=== PATIENT | male | born 1945 | race Caucasian/White ===

== ENCOUNTER → 2017-10-01 | Day surgery (SDC) | payer MEDICARE ==
[2017-09-16 10:57] LABS: BASOPHILS # (AUTO) 0.1 (0.0-0.1); BASOPHILS % 1.1 % (0.0-1.0); EOSINOPHILS # (AUTO) 0.1 (0.0-0.4); EOSINOPHILS % 1.1 % (0.0-6.0); HEMATOCRIT 41.7 % (38.2-49.6); HEMOGLOBIN 14.1 g/dL (14.0-18.0); LYMPHOCYTES # (AUTO) 2.3 (1.0-3.2); LYMPHOCYTES % 28.3 % (18.0-39.1); MEAN CORPUSCULAR HEMOGLOBIN 30.3 pg (28-32); MEAN CORPUSCULAR HGB CONC 33.8 g/dL (31-35); MEAN CORPUSCULAR VOLUME 89.7 fL (81-99); MONOCYTES # (AUTO) 0.6 (0.2-0.8); MONOCYTES % 7.6 % (4.4-11.3); NEUTROPHILS % 61.7 % (38.7-80.0); PLATELET COUNT 174 x10e3/uL (140-360); RED BLOOD COUNT 4.65 x10e6/uL (4.3-5.7); RED CELL DISTRIBUTION WIDTH 12.4 % (11.7-14.4)
[~2017-10-01] MED LIST: APRISO0.375 GM PO; ASPIRIN81 M3; CO Q-10100 MG PO; LIALDA1.2 GM PO; METOPROLOL SUCC25 MG PO; MIDAZOLAM HCL 2 MG/2 ML VIAL ONE; NIACIN 500 MG1 EACH PO; PANTOPRAZOLE SO40 MG PO; PLAVIX75 MG PO; PROPOFOL IV EMULSION 10 MG/ML 50 ML VIAL ONE; Z RANITIDINE HCL PO; Z.0.LIPITOR20 MG PO; Z.0.METOPROLOL SUCC2 PO; Z.0.PLAVIX75 MG PO; [UNRECOGNIZED DRUG - OTHER]; [UNRECOGNIZED DRUG - OTHER]; [UNRECOGNIZED DRUG - OTHER]
== END | disposition home or self-care (01) ==
LOC: OR 07:10
PROVIDERS: ATTEND Internal Medicine Gastroenterology
DX: D37.1 Neoplasm of uncertain behavior of stomach (principal); K29.70 Gastritis, unspecified, without bleeding; K44.9 Diaphragmatic hernia without obstruction or gangrene; K51.80 Other ulcerative colitis without complications; I25.10 Atherosclerotic heart disease of native coronary artery without angina pectoris; I10 Essential (primary) hypertension; Z01.810 Encounter for preprocedural cardiovascular examination; Z01.812 Encounter for preprocedural laboratory examination; Z79.82 Long term (current) use of aspirin; Z79.01 Long term (current) use of anticoagulants; Z95.5 Presence of coronary angioplasty implant and graft; Z80.0 Family history of malignant neoplasm of digestive organs
CPT/HCPCS: 36415; 43239; 85025; 88305; 88312; 93005; J2250

== ENCOUNTER → 2021-05-11 | Day surgery (SDC) | payer MEDICARE ==
[2021-05-08 12:41] LABS: BASOPHILS # (AUTO) 0.1 (0.0-0.1); BASOPHILS % 1.1 % (0.0-1.0); EOSINOPHILS # (AUTO) 0.2 (0.0-0.4); EOSINOPHILS % 2.9 % (0.0-6.0); HEMATOCRIT 41.5 % (38.2-49.6); HEMOGLOBIN 13.6 g/dL (14.0-18.0); LYMPHOCYTES # (AUTO) 2.2 (1.0-3.2); LYMPHOCYTES % 35.3 % (18.0-39.1); MEAN CORPUSCULAR HEMOGLOBIN 30.3 pg (28-32); MEAN CORPUSCULAR HGB CONC 32.8 g/dL (31-35); MEAN CORPUSCULAR VOLUME 92.4 fL (81-99); MONOCYTES # (AUTO) 0.6 (0.2-0.8); MONOCYTES % 8.9 % (4.4-11.3); NEUTROPHILS # (AUTO) 3.2 (2.1-6.9); NEUTROPHILS % 51.6 % (38.7-80.0); PLATELET COUNT 179 x10e3/uL (140-360); RED BLOOD COUNT 4.49 x10e6/uL (4.3-5.7); RED CELL DISTRIBUTION WIDTH 12.7 % (11.7-14.4)
[2021-05-08 12:52] LABS: INR 0.99; PROTHROMBIN TIME 13.7 seconds (11.9-14.5)
[2021-05-08 12:59] LABS: ALBUMIN 4.1 g/dL (3.5-5.0); ALBUMIN/GLOBULIN RATIO 1.3 (0.8-2.0); ANION GAP 15.7 mmol/L (8-16); CALCIUM 9.3 mg/dL (8.4-10.2); CREATININE, SERUM 1.04 mg/dL (0.72-1.25); POTASSIUM 4.7 mmol/L (3.5-5.1)
[2021-05-11] VITALS (26 sets, daily range): BP systolic 108–158; BP diastolic 68–85
[~2021-05-11] VITALS: Ht 177.8 cm; Wt 90.7 kg
[~2021-05-11] MED LIST changes: +ASACOL HD800 MG PO; +ASPIRIN 325 MG TAB ONE; -ASPIRIN81 M3; +ASPIRIN81 M3 PO; +FAMOTIDINE20 MG PO; +FENTANYL CITRATE/PF 100MCG/2 ML INJ ONE; +HEPARIN SOD (PORCINE) 1000 UNIT/ML 30ML ONE; +HEPARIN SOD/SOD CHLORIDE 2,000 ML ONE; +IOPAMIDOL 370 MG/ML 200 ML INFUS..BTL INJ ONE; +LEXAPRO10 MG PO; +LIDOCAINE HCL 2% LOCAL 20 ML VIAL ONE; +MONTELUKAST SOD10 MG PO; +NITROGLYCERIN/D5W 200 MCG/ML 250 ML ONE; -PROPOFOL IV EMULSION 10 MG/ML 50 ML VIAL ONE; +SODIUM CHLORIDE 0.9% 1000ML 1,000 ML ONE; +TICAGRELOR 90 MG TABLET ONE; +TURMERIC538 MG PO; +VALTREX500 MG PO; +VERAPAMIL HCL 2.5 MG/ML 2 ML VIAL ONE; -[UNRECOGNIZED DRUG - OTHER]; +[UNRECOGNIZED DRUG - OTHER] PO
== END | disposition home or self-care (01) ==
LOC: CATH LAB 05:55
PROVIDERS: ATTEND Internal Medicine Cardiovascular Disease
DX: I25.10 Atherosclerotic heart disease of native coronary artery without angina pectoris (principal); Z95.5 Presence of coronary angioplasty implant and graft; Z01.812 Encounter for preprocedural laboratory examination
CPT/HCPCS: 93458; C9600; 36415; 76937; 80053; 85025; 85610; 92928; 99152; 99153; C1725; C1874; C1887; J1644; J2001; J2250; J3010; J7030; Q9967

== ENCOUNTER → 2024-11-17 | Day surgery (SDC) | payer MEDICARE ==
[2024-11-11 09:46] LABS: BASOPHILS # (AUTO) 0.1 (0.0-0.1); BASOPHILS % 1.5 % (0.0-1.0); EOSINOPHILS # (AUTO) 0.2 (0.0-0.4); EOSINOPHILS % 2.3 % (0.0-6.0); HEMATOCRIT 43.5 % (38.2-49.6); HEMOGLOBIN 13.7 g/dL (14.0-18.0); LYMPHOCYTES # (AUTO) 2.7 (1.0-3.2); LYMPHOCYTES % 34.3 % (18.0-39.1); MEAN CORPUSCULAR HEMOGLOBIN 30.6 pg (28-32); MEAN CORPUSCULAR HGB CONC 31.5 g/dL (31-35); MEAN CORPUSCULAR VOLUME 97.3 fL (81-99); MONOCYTES # (AUTO) 0.8 (0.2-0.8); MONOCYTES % 9.5 % (4.4-11.3); NEUTROPHILS # (AUTO) 4.1 (2.1-6.9); NEUTROPHILS % 52.1 % (38.7-80.0); PLATELET COUNT 177 x10e3/uL (140-360); RED BLOOD COUNT 4.47 x10e6/uL (4.3-5.7); RED CELL DISTRIBUTION WIDTH 12.4 % (11.7-14.4)
[~2024-11-17] MED LIST changes: -ASPIRIN 325 MG TAB ONE; +EPHEDRINE SULFATE INJ 50 MG/ML VIAL ONE; +ETOMIDATE 40 MG/ 20ML VIAL IV ONE; -HEPARIN SOD (PORCINE) 1000 UNIT/ML 30ML ONE; -HEPARIN SOD/SOD CHLORIDE 2,000 ML ONE; -IOPAMIDOL 370 MG/ML 200 ML INFUS..BTL INJ ONE; -LIDOCAINE HCL 2% LOCAL 20 ML VIAL ONE; -MIDAZOLAM HCL 2 MG/2 ML VIAL ONE; -NITROGLYCERIN/D5W 200 MCG/ML 250 ML ONE; +ONDANSETRON HCL INJ 2MG/ML 2ML 2 MG/ML VIAL ONE; +PROPOFOL IV EMULSION 10 MG/ML 20 ML VIAL ONE; -SODIUM CHLORIDE 0.9% 1000ML 1,000 ML ONE; -TICAGRELOR 90 MG TABLET ONE; -VERAPAMIL HCL 2.5 MG/ML 2 ML VIAL ONE
[2024-11-17] MEDS: LACTATED RINGER'S 1,000 ML ONE (08:20)
[2024-11-17 11:18] VITALS: TEMP 98
[2024-11-17 11:45] VITALS: BP 141/80; PULSE 67; RESP 16; O2SAT 98
== END | disposition home or self-care (01) ==
LOC: OR 07:27
PROVIDERS: ATTEND Internal Medicine Gastroenterology
DX: K31.A0 Gastric intestinal metaplasia, unspecified (principal); D12.5 Benign neoplasm of sigmoid colon; K26.3 Acute duodenal ulcer without hemorrhage or perforation; K51.90 Ulcerative colitis, unspecified, without complications; K29.60 Other gastritis without bleeding; K29.50 Unspecified chronic gastritis without bleeding; K21.9 Gastro-esophageal reflux disease without esophagitis; K31.89 Other diseases of stomach and duodenum; K57.30 Diverticulosis of large intestine without perforation or abscess without bleeding; K64.8 Other hemorrhoids; I25.10 Atherosclerotic heart disease of native coronary artery without angina pectoris; I10 Essential (primary) hypertension; I25.2 Old myocardial infarction; I49.9 Cardiac arrhythmia, unspecified; E78.5 Hyperlipidemia, unspecified; R05.9 Cough, unspecified; F32.A Depression, unspecified; Z91.048 Other nonmedicinal substance allergy status; Z01.810 Encounter for preprocedural cardiovascular examination; Z01.812 Encounter for preprocedural laboratory examination; Z79.02 Long term (current) use of antithrombotics/antiplatelets; Z79.82 Long term (current) use of aspirin; Z79.899 Other long term (current) drug therapy; Z80.0 Family history of malignant neoplasm of digestive organs; Z95.5 Presence of coronary angioplasty implant and graft
CPT/HCPCS: 36415; 43239; 45380; 45384; 85025; 88305; 88342; 93005; J2405; J2704; J3010; J7121; 45378